=== PATIENT | female | born 1975 ===

== ENCOUNTER → 2024-03-09 11:39 | Outpatient (REF) | payer OTHER, SELFPAY ==
[2024-03-09 15:38] LABS: Rubella Positive
== END ==
LOC: REG 11:39
PROVIDERS: ATTENDING PHYSICIAN Nurse Practitioner Family; FAMILY PHYSICIAN Family Medicine
DX: Z13.9 Encounter for screening, unspecified (principal); Z23 Encounter for immunization
CPT/HCPCS: 36415; 71046; 86735; 86762; 86765; 86787